=== PATIENT | female | born 1980 | race Two or more races ===

== ENCOUNTER 2022-07-07 21:02 | Emergency (ER) | payer SELFPAY ==
[~2022-07-07] VITALS: Ht 172.7 cm; Wt 116.4 kg
[2022-07-07] MEDS ORDERED: IBUPROFEN 800 MG TAB PO ONE (21:30)
[2022-07-07] MEDS ORDERED: DexAMETHasone SOD PHOS 10MG/1ML VIAL INJ IM ONE (21:30)
[2022-07-07] MEDS ORDERED: LIDOCAINE VISCOUS 2% 15ML UD PO ONE (21:30)
[2022-07-07] MEDS ORDERED: cefTRIAXone SOD 1,000 MG VL IM ONE (21:30)
[2022-07-07] MEDS ORDERED: LIDO2SOL18 MT (21:42)
[2022-07-07] MEDS ORDERED: IBU600T PO (21:42)
[2022-07-07] MEDS ORDERED: PRED20TA2 PO (21:42)
[2022-07-07] MEDS ORDERED: CLIN300C70 PO (21:42)
[2022-07-07 22:59] VITALS: BP 157/83
== END 2022-07-07 23:01 | disposition home or self-care (01) ==
LOC: ER 21:06
DX: J03.90 Acute tonsillitis, unspecified (principal)
CPT/HCPCS: 96372; 99284; J0696; J1100